=== PATIENT | male | born 1970 | race Two or more races ===

== ENCOUNTER 2017-08-21 09:46 | Emergency (ER) | payer MEDICAID ==
[~2017-08-21] VITALS: Ht 170.2 cm; Wt 81.6 kg
[2017-08-21 09:51] VITALS: BP 136/88
== END 2017-08-21 10:41 | disposition home or self-care (01) ==
LOC: ER 09:52
DX: L72.3 Sebaceous cyst (principal)

== ENCOUNTER 2018-03-05 07:03 | Emergency (ER) | payer MEDICAID ==
[~2018-03-05] VITALS: Ht 170.2 cm; Wt 81.6 kg
[2018-03-05 07:19] VITALS: BP 134/91
[2018-03-05] MEDS ORDERED: LIDOCAINE 1% HCL (LOCAL ANESTH.) INJ 20ML MDV IJ ONE (07:45)
== END 2018-03-05 08:24 | disposition home or self-care (01) ==
LOC: ER 07:03
DX: L72.0 Epidermal cyst (principal); X58.XXXA Exposure to other specified factors, initial encounter; Y93.89 Activity, other specified; Y92.89 Other specified places as the place of occurrence of the external cause; Y99.8 Other external cause status
CPT/HCPCS: 10060; 99283; C1887; J2001; 12001

== ENCOUNTER 2023-06-16 09:42 | Inpatient (IN) | payer MEDICAID, OTHER ==
[~2023-06-16] VITALS: Ht 170.2 cm; Wt 83.1 kg
[2023-06-16 10:05] LABS: Basophils # (auto) 0 10 ^3/uL (0-0.2); Basophils % (auto) 0.3 % (0.0-2.0); Eosinophils # (auto) 0.2 10 ^3/uL (0-0.8); Eosinophils % (auto) 3.1 % (0.0-7.0); Hematocrit 46.9 % (41.0-53.0); Hemoglobin 16.1 g/dL (13.5-17.5); Lymphocytes # (auto) 2.7 10 ^3/uL (0.4-5.4); Lymphocytes % (auto) 38.1 % (10.0-50.0); Mean Corpuscular Hemoglobin 30.5 pg (28.0-32.0); Mean Corpuscular Hgb Conc. 34.3 g/dL (32.0-36.0); Mean Corpuscular Volume 88.9 fL (80.0-100.0); Monocytes # (auto) 0.6 10 ^3/uL (0-1.3); Monocytes % (auto) 8.7 % (0.0-12.0); Neutrophils # (auto) 3.5 10 ^3/uL (1.6-8.6); Neutrophils % (auto) 49.8 % (37.0-80.0); Nucleated Red Blood Cells % 0.1 %; Red Blood Cells 5.28 10^6/uL (4.5-5.90); Red Cell Distribution Width 13.3 % (11.8-14.3); White Blood Cell 7.1 10^3/uL (4.4-10.8)
[2023-06-16 10:21] LABS: Alanine Aminotransferase 30 U/L (7-40); Albumin 4.7 g/dL (3.2-4.8); Alkaline Phosphatase 81 U/L (46-116); Anion Gap 7 (5-15); Aspartate Aminotransferase 18 U/L (13-40); BUN/Creatinine Ratio 14.1 (10.0-20.0); Blood Urea Nitrogen 13 mg/dL (9-23); Calcium 9.6 mg/dL (8.5-10.1); Carbon Dioxide 28 mmol/L (20-30); Chloride 106 mmol/L (98-107); Glucose 95 mg/dL (74-106); Potassium 4.2 mmol/L (3.5-5.1); Sodium 141 mmol/L (136-145)
[2023-06-16 10:22] LABS: Bilirubin, Total 0.8 mg/dL (0.2-1.0); Total Protein 7.1 g/dL (5.7-8.2)
[2023-06-16 13:31] VITALS: PULSE 75
[2023-06-16] MEDS: ASPirin 325 MG TAB PO ONE (13:40)
[2023-06-16] MEDS: NITROGLYCERIN 0.4 MG SL TAB SL ONE (13:40)
[2023-06-16] MEDS: ASPirin 325 MG TAB ONE (13:43)
[2023-06-16] MEDS ORDERED: MORPHINE SULFATE INJ 2 MG/ml SYRG IV PRN (14:15)
[2023-06-16] MEDS ORDERED: NITROGLYCERIN 0.4 MG SL TAB SL PRN (14:15)
[2023-06-16] MEDS: ATORVASTATIN 20 MG TAB PO ONE (15:57)
[2023-06-17 06:07] LABS: Basophils # (auto) 0 10 ^3/uL (0-0.2); Basophils % (auto) 0.3 % (0.0-2.0); Eosinophils # (auto) 0.3 10 ^3/uL (0-0.8); Eosinophils % (auto) 5.6 % (0.0-7.0); Hematocrit 43.3 % (41.0-53.0); Hemoglobin 14.8 g/dL (13.5-17.5); Lymphocytes # (auto) 2.1 10 ^3/uL (0.4-5.4); Lymphocytes % (auto) 33.6 % (10.0-50.0); Mean Corpuscular Hemoglobin 30.4 pg (28.0-32.0); Mean Corpuscular Hgb Conc. 34.1 g/dL (32.0-36.0); Mean Corpuscular Volume 89.1 fL (80.0-100.0); Monocytes # (auto) 0.7 10 ^3/uL (0-1.3); Monocytes % (auto) 11.6 % (0.0-12.0); Neutrophils % (auto) 48.9 % (37.0-80.0); Nucleated Red Blood Cells % 0.1 %; Red Blood Cells 4.86 10^6/uL (4.5-5.90); Red Cell Distribution Width 13.3 % (11.8-14.3); White Blood Cell 6.2 10^3/uL (4.4-10.8)
[2023-06-17 06:18] LABS: Chloride 106 mmol/L (98-107); Potassium 4.1 mmol/L (3.5-5.1); Sodium 139 mmol/L (136-145)
[2023-06-17 06:19] LABS: Anion Gap 5 (5-15); Carbon Dioxide 28 mmol/L (20-30)
[2023-06-17 06:24] LABS: BUN/Creatinine Ratio 12.2 (10.0-20.0); Blood Urea Nitrogen 12 mg/dL (9-23); Glucose 94 mg/dL (74-106)
[2023-06-17] MEDS: ASPirin 81 mg TAB PO SCH (10:00)
[2023-06-17 11:58] VITALS: PULSE 75; RESP 20; O2SAT 97
[2023-06-17 12:28] VITALS: BP 140/87; PULSE 71; RESP 18; TEMP 97.5; O2SAT 97
[2023-06-17] MEDS ORDERED: ACETAMINOPHEN 325 MG TAB PO PRN (14:00)
[2023-06-17] MEDS ORDERED: ONDANSETRON HCL 4 MG/2 ML VIAL IV PRN (14:00)
[2023-06-17] MEDS: IOHEXOL 350 MG/ML 100ML IJ ONE (14:34)
[2023-06-17 14:35] LABS: Hepatitis B Surface Antigen Negative (Negative)
[2023-06-17 15:03] LABS: Free T3 3.57 pg/mL (2.3-4.2); Free T4 (Free Thyroxine) 1.12 ng/dL (0.89-1.76)
[2023-06-17 20:00] VITALS: BP 131/84; PULSE 67; PULSE 82; RESP 18; TEMP 98.3; O2SAT 98
[2023-06-17 22:00] VITALS: BP 131/84; PULSE 67; RESP 18; TEMP 98.3; O2SAT 98
[2023-06-17] MEDS: ATORVASTATIN 20 MG TAB PO SCH (22:06)
[2023-06-18] VITALS (8 sets, daily range): BP systolic 107–142; BP diastolic 70–84; PULSE 58–71; RESP 16–22; TEMP 97.4–98.7; O2SAT 94–98
[2023-06-18 09:14] LABS: Hepatitis C Antibody Negative (Negative)
[2023-06-18] MEDS: PANTOPRAZOLE 40 MG TAB PO ONE (12:01)
[2023-06-19] MEDS ORDERED: PANTOPRAZOLE 40 MG TAB PO SCH (10:00)
== END 2023-06-18 17:40 | disposition home or self-care (01) | DRG 243 ==
LOC: ER 09:42 → TELE 14:16 → TELE-EAST 06-17 12:28
PROVIDERS: ADMIT Internal Medicine Geriatric Medicine; ATTEND Internal Medicine Geriatric Medicine
DX: K21.9 Gastro-esophageal reflux disease without esophagitis (principal); E66.9 Obesity, unspecified; E78.5 Hyperlipidemia, unspecified; R07.89 Other chest pain; I10 Essential (primary) hypertension; R73.03 Prediabetes; Z68.28 Body mass index [BMI] 28.0-28.9, adult
CPT/HCPCS: 36415; 70450; 71046; 71275; 80048; 80053; 83036; 83735; 84439; 84443; 84481; 84484; 85025; 85379; 86803; 87340; 93005; 93306; 93886; G0378

== ENCOUNTER → 2023-07-22 | Outpatient (CLI) | payer MEDICAID ==
[~2023-07-22] VITALS: Ht 170.2 cm; Wt 82.6 kg
== END | disposition home or self-care (01) ==
LOC: Rad HDHVI 08:05
PROVIDERS: ATTEND Internal Medicine Cardiovascular Disease
DX: R07.89 Other chest pain (principal); R06.02 Shortness of breath; R55 Syncope and collapse; Z79.899 Other long term (current) drug therapy
CPT/HCPCS: 78452; 93017; 96374; A9500